=== PATIENT | male | born 1965 | race Caucasian/White ===

== ENCOUNTER → 2017-09-24 11:36 | Outpatient (CLI) | payer BC, SELFPAY ==
--- NOTE | 2017-09-24 11:36 | DI.REPORT_ITS ---
SYMPTOM/DIAGNOSIS: EVAL LT CALF PAIN M79.662 ? DVT LEFT LOWER EXTREMITY ULTRASOUND: The deep veins of the left lower extremity show normal compression augmentation and color flow. The visualized portions of the greater saphenous vein are patent. There is a 1.9 x 1.5 x 2.3 cm fluid collection in the popliteal fossa which may represent a Wills's cyst. IMPRESSION: No evidence of a left lower extremity deep venous thrombus. 2. 2.3 cm Wills's cyst.
== END ==
PROVIDERS: PCP Nurse Practitioner Family; Visit Provider Student in an Organized Health Care Education/Training Program
DX: M79.662 Pain in left lower leg (principal); M71.22 Synovial cyst of popliteal space [Baker], left knee
CPT/HCPCS: 93971

== ENCOUNTER 2017-10-17 10:30 | Outpatient (RCR) | payer BC, SELFPAY ==
--- NOTE | 2017-10-03 13:00 | IE_ITS ---
Date: October 03, 2017 Referring: Tyron Olivera MD M.D. Diagnosis: L LE contracture, s/p L WESLEY on 08/28/17, L plantar fasciitis P.T. Diagnosis: SUBJECTIVE: History of Present Illness: Sunil is a 52 year old male s/p WESLEY, anterior approach on 08/28/[address] Olivera. He has been experiencing approximately 3 weeks of increased irritation into the L foot, arch, and into the calf. They assessed him for blood clots, (-) in findings. He reports his pain to be an 8/ 10 that gets to a 10/10, it keeps him awake at night, it is painful to the touch , he cannot tolerate a sheet over his foot. He declines any pain into the L hip. Hip has been doing great with ROM, strength and mobility. He has been compliant with his HEP as issued post discharge from [facility] on 08/29/17. He is utilizing a standard cane for ambulation currently, moreso due to foot/calf irritation than his hip. His gait is mildly antalgic secondary to the pain in his heel. He declines any tingling or numbness, declines any bowel or bladder dysfunction. His next follow up is on 10/15/17, they are questioning need of a MRI at that point if no improvement. Pain Ratin/10 in the calf, 10/10 into the heel and foot. Prior Level of Function: Current Level of Function: Limited ADL's, limited standing tolerance, limited walking tolerance. Previous Treatment: WESLEY L. Social: He lives at home with his girlfriend. He remains out of work since surgery. He is employed for the [employer]. Comorbidities: Fairly unremarkable, other than a previous R WESLEY approximately 10 years ago. Falls in the last year: __X__ No ____Yes - How many? ____ - (if over 2, balance SM needs to be completed) Reported hospitalizations in the last year - ____ No __X__ Yes - Dates of admission/reason: for WESLEY one night then released home. Medications: PRN Ibuprofen and Tylenol. He has utilized muscle relaxers of which provide him no benefit. Quality of Life: __X__ Excellent ____ Good ____ Fair ____ Poor Standardized Measures: LEFS score: 32% OBJECTIVE: Posture: Mild forward head, rounded shoulder posturing, pendulous abdomen. Observation: (behavior, atrophy, skin color, etc.) In standing shifts his weight to his R LE, utilizing a single point cane on the R. Gait: Antalgic, favoring L LE with limited push off and heel strike secondary to extreme pain in his L foot, arch and heel that radiates into the calf. Palpation: Hypersensitivity to the touch, throughout the plantar fascia, into the gastric and soleus. ROM: Active lumbopelvic forward bend fingertips 8 from floor, extension (-) lateral shift to 20 degrees, sidebend to lateral joint line bilaterally. Rotation is equal and symmetrical without dysfunction. Active L hip flexion is to 100 degrees, ER 30 degrees, IR 10 degrees. Has full knee flexion/extension, dorsiflexion is to neutral, plantar flexion to 25 degrees with increased pain. R LE ROM is WFL and painfree. Strength: Hip flexors L 4/5, R 5/5, knee flexor/extensors 5/5, plantar flexors , dorsiflexors 5/5, he has independent SLR in supine sidelying. Neuro: Intact to light touch with hypersensitivity noted. He is unable to heel or toe walk on the L secondary to extreme pain in his L foot. Treatment: IE: [id number] Patient Education: Instruction in a home program promoting gastroc and soleus stretching, plantar fascia stretching, educated in use of supportive foot wear, avoid walking barefoot or without shoes. He received soft tissue mobilization to the posterior gastroc soleus into the plantar fascia in supine and prone positions. This did help with level of sensitivity. He then received X-Arch tape for improved support to the plantar fascia with weight bearing which also dramatically reduced level of irritation with his gait and was able to demonstrate improved gait mechanics with heel to toe fashion. Direct treatment time: 50 mins Total treatment time: 50 mins ASSESSMENT: Patient is a 52-year-old male, referred for PT services with the diagnosis of s/ p L WESLEY resulting in L LE contracture and plantar fasciitis. Patient presents with clinical signs and symptoms consistent with this diagnosis, as demonstrated by the following impairment level findings: Impaired joint mobility. motor functio, muscle performance and ROM associated with localized inflammation. Impairments are contributing to the following functional limitations: Gait, balance, strength, LEFS of 32%/ Patient is assessed as: __X__ Low 89262 ____ Moderate 00077 ____ High 34915 complexity, based on the following: History: (list): X See comorbidities and social history. Examination: (list): X See above for functional limitations and impairments. Presentation: X Stable . Evolving Unstable Decision-Making: X Low complexity Moderate complexity High complexity % Disability based on clinical judgement and LEFS of 32%. __X__ Patient requires skilled PT intervention to remediate the above functional limitations to return to: __X__ Premorbid level of function __X__ Return to full functional mobility __X__ Return to work demands _ STG: __6__ weeks. 1: Demonstrate non-antalgic gait without assistive device. 2: 50% reduction in pain rating via visual analog scale or greater in the L heel and arch. 3: Reduced perceived disability rating by 25% or greater via LEFS. 4: Ascend and descend a flight of stairs reciprocal fashion with use of railing. 5: Improve LE strength by 1/2 muscle grade or greater. LTG: __8__ weeks. 1: Return to premorbid level of function. 2: Return to full, pain-free, functional mobility. 3: Independent with self-maintenance program. PLAN: Patient to be seen 2 x per week, for 8 weeks, adjusting frequency of visits per patient symptoms and response to treatment. Treatment to include: Modalities as needed for pain and edema reduction with focus on plantar fascia Manual therapy - [id number]: soft tissue mobilization, soft tissue stretching , desensitization Therapeutic exercise - [id number]/close kinetic chain stabilization focusing on ADL return and return to work with manageable symptoms. If no level of improvement is seen, he will follow up again with orthopedic and proceed with further intervention. Will continue taping techniques, fabricate a pair of accommodative orthotics if taping is helpful. Patient will be discharged when the above goals have been met. Thank you for this referral. Please do not hesitate to contact me with any questions or concerns regarding this patient's plan of care. cc: Tyron Olivera MD
--- NOTE | 2017-10-05 09:30 | PTTR_ITS ---
DATE: 10/05/17 SUBJECTIVE: Harvinder reports that the X arch taping he received yesterday really bothered him and he took it off that night. He enters the clinic wearing sneakers today. OBJECTIVE: Manual therapy: (26177h3). STM t/o calf with focus on gastroc and soleus using PRT's. I also worked into his plantar aspect of foot. PRT's of plantar fascia, CFM over medial calcaneal tuberosity. Mobilizations of foot and ankle including dorsal and volar glides of subtalar and talocural jt as well as distractions and ROM. I then performed an ice massage to medial calcaneal tuberosity x 3min. I applied kinestiotape for plantar fascitis using Y strip and myofascial correction. Direct treatment time: 30 min Total treatment time: 30 min
--- NOTE | 2017-10-09 11:00 | PTTR_ITS ---
DATE: 10/09/17 SUBJECTIVE: Indicated he has really not noticed much of a change with his left foot / calf pain. Stated he is not really using ice much or massaging with golf ball due to this not making a difference with his pain. Indicated the taping of left foot has not really helped and is not interested in having tape applied today. Had a difficult time getting tape off last session. OBJECTIVE: Manual therapy ([id number]): Received soft tissue mobilization to left distal gastroc, myofascial splaying throughout the plantar fascia and CFM to calcaneal tuberosity for desensitization. Soft tissue stretching of gastroc and soleus muscles as well as throughout the plantar fascia was also performed. Therapeutic procedures (04646e7). * x HEP review: Reviewed his HEP with client. Was advised to continue utilizing cryotherapy, self massage and stretching. * x Ultrasound - (x 8 mins) - [id number]: Performed u/s at 3 mHz at 1.0 w/cm2 50% duty cycle x 8 minutes to left calcaneal tuberosity, as per discussion with supervising PT. To receive fabrication of orthotics next session. Direct treatment time: 25 minutes Total treatment time: 35 minutes
--- NOTE | 2017-10-12 09:30 | PTTR_ITS ---
DATE: October 12, 2017 SUBJECTIVE: Harvinder notes that he does feel that he is making some improvements. He states that his calf is not as sore. He reports that the foot remains the chief complaint. He reports that the hip is doing great. He feels that the ultrasound gave him some relief after last session. OBJECTIVE: Seen for accommodative orthotic fitting prior to todays session via [facility] Manual therapy: ([id number]).Soft tissue stretching to the left gastroc and soleus complex. STM to the plantar fascia. Therapeutic procedures (65892i1). * X HEP review: Reviewed therex per protocol s/p THR. * X See flow sheet: Incorporated intrinsic strength of the foot and ankle, with progression of open chain stabilization for the proximal hip and core musculature. * X Provided skilled instruction in proper exercise performance: promoting body mechanics with increased cueing needed for SL hip abduction. Wanted to compensate and utilize his hip flexors. * X Provided skilled manual cues to facilitate proper muscle recruitment and/ or movement pattern: avoiding compensatory movements. * Continued with verbal cueing for proper gait mechanics, patient continues to avoid push off. Ultrasound - (x 8 mins) - [id number]: 3 mgh 50%duty cycle 1.0 dailey per cm sq to the medial calcaneal tubercle Declined need of modality post session. Direct treatment time: 45 minutes Total treatment time: 45 minutes
--- NOTE | 2017-10-12 10:00 | NT_ITS ---
10/12/17 Today I fabricated a pair of custom orthotics using Aliplast and Plastizote. [place] scaphoid pad placed for longitudinal arch. These fit well in his shoes upon completion. Proper break in time was gone over with patient. He will contact me with any modifications that may need to be made. NO CHARGE. RF/dl
--- NOTE | 2017-10-16 10:30 | PTTR_ITS ---
DATE: 10/17/17 SUBJECTIVE: States he saw Dr. Olivera and feels his pain could be stemming from his back. See Dr. Olivera's note for details. Heel pain is improved, however continues to have pain and increased sensitivity to left lower leg. OBJECTIVE: Today's session consisted of lumbar stabilization along with initiating Kanwal exercise (prone on elbows and prone press ups). These were demonstrated in clinic and given for home. Also completed pelvic tilts, bridges and proper sitting position from a postural standpoint. Extensive verbal and tactile cueing for pelvic tilt were required. Harvinder felt some improvement at the end of the session and I instructed him to perform these extension exercises 5 times per day to tolerance. He is scheduled for an MRI next week as per Dr. Olivera. No modalities post treatment. Therapeutic procedures ([id number]). * X HEP review: * X Provided skilled instruction in proper exercise performance: [] * X Provided skilled manual cues to facilitate proper muscle recruitment and/ or movement pattern: [] Direct treatment time: 30 min. Total treatment time: 40 min.
--- NOTE | 2017-10-19 10:30 | PTTR_ITS ---
DATE: 10/19/17 [place] cancelled today's appointment due to him not feeling well.
== END 2017-10-19 23:59 | disposition home or self-care (01) ==
LOC: PT 10:30
PROVIDERS: PCP Nurse Practitioner Family; Referring Provider Student in an Organized Health Care Education/Training Program; Visit Provider Student in an Organized Health Care Education/Training Program
DX: Z47.1 Aftercare following joint replacement surgery (principal); Z96.642 Presence of left artificial hip joint; M72.2 Plantar fascial fibromatosis; M79.662 Pain in left lower leg
CPT/HCPCS: 97035; 97110; 97140; 97161

== ENCOUNTER 2017-10-24 00:51 | Outpatient (CLI) | payer BC, SELFPAY ==
--- NOTE | 2017-10-24 15:35 | DI.MRI_ITS ---
SYMPTOM/DIAGNOSIS: LT LUMBAR RADICULOPATHY, M54.16, LOW BACK PAIN RADIATING DOWN LEG LUMBAR SPINE MRI: Comparison is made with plain films from 2007. T 1, T 2 and STIR sagittal and T 1 and T 2 axial sequences were performed. The marrow signal is normal. The conus medullaris is unremarkable. The vertebral bodies are well maintained in height. The L 1-2 and L 2-3 levels are unremarkable. At L 3-4, there is mild broad based disc bulging and mild to moderate facet degenerative changes. Ligamentous hypertrophy is also present. There is no significant neural foraminal narrowing or central canal stenosis. At L 4-5, there is broad based disc bulging which is eccentric toward the right causing mild neural foraminal narrowing. Facet degenerative changes and ligamentous hypertrophy are present. No central canal stenosis is seen. At L 5-S 1, there is a small right lateral disc protrusion which could impinge on the left L 5 nerve root. There is no significant neural foraminal narrowing or central canal stenosis. IMPRESSION: Degenerative disc changes from L 3-4 through L 5-S 1. There is left neural foraminal narrowing at L 3-4 and right neural foraminal narrowing at L 4-5. A small right lateral disc protrusion is seen at L 5-S 1.
== END 2017-10-24 01:11 ==
PROVIDERS: PCP Nurse Practitioner Family; Visit Provider Student in an Organized Health Care Education/Training Program
DX: M54.5 Low back pain (principal); M51.16 Intervertebral disc disorders with radiculopathy, lumbar region; M54.16 Radiculopathy, lumbar region
CPT/HCPCS: 72148

== ENCOUNTER 2017-11-09 00:17 | Outpatient (CLI) | payer BC, SELFPAY ==
--- NOTE | 2017-11-09 10:42 | DI.CT_ITS ---
SYMPTOMS/DIAGNOSIS: PERONEAL NERVE INJURY, S/P LT WESLEY, LT LEG WEAKNESS, R29.898 , ? HEMATOMA CT SCAN OF THE LEFT PELVIS AND THIGH: CT scan of the left pelvis and thigh were performed extending from above the left iliac crest through to the upper femur to below the femoral component on the left hip prosthesis. There is artifact from the patient's orthopedic hardware. The muscles have a normal appearance. No evidence of fatty atrophy is seen. No findings to suggest an intramuscular hematoma are present. No soft tissue mass or focal fluid collection is seen in the region of the sciatic notch or along the course of the sciatic nerve to suggest a hematoma or abscess. The visualized nerve roots in the pelvis appear grossly unremarkable. No retroperitoneal mass is seen. The visualized bones appear intact. No evidence of an acute fracture is appreciated. The soft tissues are unremarkable. IMPRESSION: 1. Status post left total hip replacement. 2. Artifact from patient's orthopedic hardware. 3. No evidence of a soft tissue mass or fluid collection to suggest abscess or hematoma. No findings to suggest compression of the sciatic nerve are noted.
== END 2017-11-09 00:37 ==
PROVIDERS: PCP Nurse Practitioner Family; Visit Provider Student in an Organized Health Care Education/Training Program
DX: R29.898 Other symptoms and signs involving the musculoskeletal system (principal); S84.12XA Injury of peroneal nerve at lower leg level, left leg, initial encounter; Z96.642 Presence of left artificial hip joint
CPT/HCPCS: 73700

== ENCOUNTER 2017-11-14 13:46 | Outpatient (CLI) | payer BC, SELFPAY ==
--- NOTE | 2017-11-14 13:34 | DI.RAD_ITS ---
SYMPTOM/DIAGNOSIS: QUESTION OF WILLS'S CYST LEFT KNEE: Narrowing of the medial tibial femoral joint is demonstrated and there is some articular sclerosis. There is mild johnnie-articular hypertrophic spurring. There is nothing to suggest a joint effusion or Wills's cyst, however, if there is any further question in this regard further assessment with ultrasound is recommended.
== END 2017-11-14 14:06 ==
PROVIDERS: PCP Nurse Practitioner Family; Visit Provider Physician Assistant
DX: M25.562 Pain in left knee (principal); M76.892 Other specified enthesopathies of left lower limb, excluding foot
CPT/HCPCS: 73562

== ENCOUNTER 2017-11-16 00:20 | Outpatient (CLI) | payer MEDICAID, SELFPAY ==
--- NOTE | 2017-11-16 15:30 | DI.MRI_ITS ---
SYMPTOMS/DIAGNOSIS: CONTINUED LEFT NEUROPATHY, LEFT WILLS'S CYST LEFT KNEE MRI: MRI examination of the knee was performed according to the usual protocol. There is some motion artifact and the examination is technically limited. No Wills's cyst identified. No soft tissue mass seen by noncontrast criteria. No significant bony signal abnormality seen. Extensor mechanism appears intact. Articular cartilage of the tibiofemoral joints poorly visualized. Medial meniscal tear noted. No definite lateral meniscal tear is seen. No cruciate ligament tear is seen. No significant collateral ligament injury identified. CONCLUSION: Limited technical quality scan. Medial meniscal tear noted with no additional findings. No Wills's cyst seen.
== END 2017-11-16 00:40 ==
PROVIDERS: PCP Nurse Practitioner Family; Visit Provider Student in an Organized Health Care Education/Training Program
DX: M25.562 Pain in left knee (principal); S83.242A Other tear of medial meniscus, current injury, left knee, initial encounter
CPT/HCPCS: 73721

== ENCOUNTER 2018-06-05 22:51 | Emergency (ER) | payer MEDICAID, SELFPAY ==
[2018-06-05 22:55] VITALS: BP 143/82; PULSE 92; RESP 18; TEMP 36.6; O2SAT 94
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
[2018-06-05] MEDS: Azithromycin 250 MG TAB 500 MG PO (23:31)
[2018-06-05] MEDS: predniSONE 20 MG TAB 60 MG PO (23:31)
[2018-06-05 23:34] VITALS: RESP 7
[2018-06-05] MEDS: Albuterol/Ipratropium 3 ML UPD VIAL UPD (23:34)
[2018-06-05 23:46] VITALS: PULSE 91; O2SAT 98
[2018-06-05] MEDS: Albuterol HFA 8 GM 60 PUFF INH IH (23:58)
[2018-06-05] MEDS: Inhaler, Assist Device 1 EACH MC (23:59)
== END 2018-06-06 00:05 | disposition home or self-care (01) ==
PROVIDERS: Emergency Provider Emergency Medicine; PCP Nurse Practitioner Family
DX: J20.9 Acute bronchitis, unspecified (principal)
CPT/HCPCS: 94640; 99283; J7512; J7620

== ENCOUNTER 2018-09-05 01:10 | Outpatient (CLI) | payer MEDICAID, SELFPAY ==
--- NOTE | 2018-09-05 07:11 | DI.US_ITS ---
SYMPTOM/DIAGNOSIS: F/U 2013 U/S, FATTY LIVER , OBESITY K76.0 ABDOMINAL ULTRASOUND: The aorta is obscured by bowel gas, The vena cava is unremarkable. Increased echogenicity is noted in an enlarged liver. The gallbladder is intact. There are no stones or evidence of ductal dilatation. The pancreas is incompletely visualized but no gross abnormality is seen. The spleen has a maximal diameter of 10.9 cm. The right kidney is unremarkable measuring 12.6 cm. The left kidney is unremarkable measuring 12.7 cm. There is no evidence of abdominal free fluid. SUMMARY: Enlarged fatty liver is demonstrated. Also the spleen is somewhat enlarged. The examination is otherwise unremarkable.
[2018-09-05 08:47] LABS: Abs Immature Grans 0.05 k/cumm (0.0-0.09); Absolute Basophil Count 0.04 k/cumm (0.0-0.2); Absolute Eosinophil Count 0.27 k/cumm (0.0-0.7); Absolute Lymphocyte Count 2.09 k/cumm (1.2-3.4); Absolute Monocyte Count 0.63 k/cumm (0.11-0.7); Absolute Neutrophil Count 3.16 k/cumm (1.2-6.7); Basophils % 0.6; Eosinophils % 4.3; HCT 44.5 % (40.0-50.0); HGB 14.7 g/dL (13.5-17.5); Immature Grans % 0.8; Lymphocytes % 33.5; Mean Corpuscular Hemoglobin 31.1 pg (27.0-33.0); Mean Corpuscular Volume 94.3 fL (80-95); Mean Platelet Volume 10.8 fL (8.0-11.0); Monocytes % 10.1; Neutrophils % 50.7; Platelet Count 141 x1000/uL (130-400); RBC 4.72 m/cumm (4.50-6.00); RBC Distribution Width 13.1 % (11.8-14.1); White Blood Cell Count 6.24 k/cumm (4.4-10.8)
[2018-09-05 09:48] LABS: ALT 146 U/L (12-78); AST 79 U/L (15-37); Albumin 3.7 g/dL (3.4-5.0); Alkaline Phosphatase 60 U/L (46-116); Anion Gap 10.2 mmol/L (3-11); BUN 16 mg/dL (7-18); Bilirubin, Total 0.4 mg/dL (0.2-1.0); CO2 26.8 mmol/L (21.0-32.0); CREATININE 0.83 mg/dL (0.70-1.30); Calcium 8.8 mg/dL (8.5-10.1); Calculated LDL 152 mg/dL; Chloride 102 mmol/L (98-107); Cholesterol 217 mg/dL (50-200); Glucose 96 mg/dL (70-100); HDL Cholesterol 42 mg/dL (40-60); Potassium 4.3 mmol/L (3.5-5.1); Sodium 139 mmol/L (136-145); TSH (W/Ref FT4) 5.11 uIU/mL (0.358-3.74); Total Protein 7.5 g/dL (6.4-8.2); Triglyceride 116 mg/dL (30-150); Vitamin B12 436 pg/mL (193-986)
[2018-09-06 12:45] LABS: Total Protein 7.1 g/dl (6.3-8.2)
== END 2018-09-05 01:30 ==
PROVIDERS: Psychiatry & Neurology Neurology; PCP Nurse Practitioner Adult Health; Visit Provider Nurse Practitioner Adult Health
DX: E66.9 Obesity, unspecified (principal); K76.0 Fatty (change of) liver, not elsewhere classified; D64.9 Anemia, unspecified; E03.9 Hypothyroidism, unspecified; I10 Essential (primary) hypertension; R74.0 Nonspecific elevation of levels of transaminase and lactic acid dehydrogenase [LDH]; Z51.81 Encounter for therapeutic drug level monitoring; E78.5 Hyperlipidemia, unspecified; G62.9 Polyneuropathy, unspecified; R16.1 Splenomegaly, not elsewhere classified
CPT/HCPCS: 36415; 80053; 80061; 83721; 76700; 82607; 83036; 84165; 84439; 84443; 85025

== ENCOUNTER 2018-12-31 08:26 | Emergency (ER) | payer MEDICAID, SELFPAY ==
[2018-12-31 08:35] VITALS: BP 143/94; PULSE 81; RESP 18; TEMP 35.9; O2SAT 98
--- NOTE | 2018-12-31 08:58 | DI.CT_ITS ---
EXAM: CT RENAL COLIC WO CLINICAL HISTORY: left flank pain, fall 10 days ago, refused contrast TECHNIQUE: Imaging Protocol: Axial computed tomography images with coronal and sagittal reformatted images were created and reviewed. CONTRAST MATERIAL: Intravenous: Omnipaque 350 Contrast volume:0 mL contrast route:IV - Oral: No COMPARISON: CHEST FOR PULMONARY EMBOLUS from 12/05/2016 CT lower extremity LT wo from 11/09/2017 FINDINGS: ABDOMEN: Lung Bases: Normal where visualized. Liver: Normal density. No measurable mass. Gallbladder and biliary tract: No radiodense calculus or dilation. Pancreas: Normal density, no abnormal calcifications or inflammatory process. Spleen: Normal. Kidneys: Normal size, contour and axis. No radiodense stones or obstructive uropathy. No masses seen. Adrenal glands: No masses seen. Abdominal Aorta: Abdominal portion non-dilated. Atherosclerosis. PELVIS: Bladder: Symmetric distention, no gross wall thickening. Bowel: No obstruction or bowel wall thickening. There is a moderate size hiatal hernia. The appendi x is normal in size without evidence of adjacent mesenteric fat stranding or adjacent fluid collectio n. Peritoneal cavity: No ascites, collection or mesenteric inflammatory response. There is a small fat c ontaining umbilical hernia. Bones: Within normal limits. There are bilateral total hip replacements. There is artifact in the pel vis limiting evaluation of the pelvic organs. IMPRESSION: No evidence of an acute abdomen. The findings were discussed with the emergency department on the date of the examination. DATA REPOSITORY: All CT scans at this facility are submitted to the National Radiology Data Registry (NRDR) Dose Index Registry (DIR) with the [employer] (ACR). RADIATION OPTIMIZATION: All CT scans at this facility use at least one of these dose optimization te chniques: automated exposure control; mA and/or kV adjustment per patient size (includes targeted exa ms where dose is matched to clinical indication); or iterative reconstruction.
--- NOTE | 2018-12-31 08:58 | DI.RAD_ITS ---
EXAM: XR ELBOW LT COMPLETE INDICATION: fall 10d ago, ttp. COMPARISON: No exams were available for comparison TECHNIQUE: 2D digital imaging was performed. FINDINGS: No acute fracture or dislocation is present. There is a large enthesophyte at the olecranon. The so ft tissues are unremarkable. IMPRESSION: No acute fracture or dislocation.
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
== END 2018-12-31 10:45 | disposition home or self-care (01) ==
PROVIDERS: Emergency Provider Student in an Organized Health Care Education/Training Program; PCP Nurse Practitioner Adult Health
DX: M54.5 Low back pain (principal); M25.522 Pain in left elbow
CPT/HCPCS: 99284; 73080; 74176

== ENCOUNTER 2019-04-07 06:16 | Day surgery (SDC) | payer MEDICAID, SELFPAY ==
[2019-04-07 06:36] VITALS: BP 130/73; PULSE 89; RESP 18; TEMP 36.5; O2SAT 93
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
--- NOTE | 2019-04-07 06:46 | W.PM.ENDDOP ---
Date of service: 04/07/19 Time of Service: 07:38 Endoscopy Report DATE OF PROCEDURE: 04/07/19 PRE-OP DIAGNOSIS: Hx of colon Polyps and Hx of Mcmahan's POST-OP DIAGNOSIS: same (GAstritis, Gastric polyps, Hiatal Hernia, Esophagitis, Colon polyps, mild diverticulosis) PROCEDURE: 1. EGD with biopsies 2. Colonoscopy with polypectomy SURGEON: Mary Beltre ANESTHESIA: other (General/ ASA 3/ Lissette Guevara, CHYRON OPERATOR) ESTIMATED BLOOD LOSS: 4 PATHOLOGY: other (Gastric bx, gastric polyp bx, GE junction bx, Descending colon polyp x2, Sigmoid polyp x2) COMPLICATIONS: None DISPOSITION: same day INDICATIONS: 53 y/o male with history of HTN, barretts esophagus, obesity and chronic pain presents for EGD and colonoscopy screening pre-op. His last screening was in 2013, which was remarkable for tubular adenoma. He denies a family history of colon cancer. He denies any changes in bowel habits including bloody or black tarry stools, abdominal pain, diarrhea or constipation. Risks, benefits and complications have been reviewed. Complications include but are not limited to bleeding, pain, perforation, missed small lesion/polyp, sore throat, aspiration and adverse reaction to the medications. Questions were entertained and answered to their satisfaction and they wished to proceed. No guarantees were given or implied. PREP: Miralax/Dulcolax PROCEDURE START TIME: 07:38 PROCEDURE END TIME: 08:35 COLONOSCOPY RETRACTION TIME: 40 minutes FINDINGS: Upper- mild inflammation of the stomach, multiple fundic polyps, esophagitis and Mcmahan's Lower- 4 polyps and mild diverticulosis PROCEDURE DESCRIPTION: After informed consent was obtained the patient was take to the procedure room and placed in a supine position. Monitors were applied and a time out was done. The patients name, date of , procedure type, allergies to medications and metal in their body was reviewed. A bite block was placed and the patient was sedated. Once sedated and comfortable the gastroscope was advanced through the oropharynx which was grossly normal into the esophagus. The proximal and mid-esophagus were Normal. In the distal esophagus there was inflammation noted. Grossely it looked like Mcmahan's. No ulcer were noted. The scope was advanced into the stomach and through the pylorus into the 3rd portion of the duodenum. The duodenum was noted to be normal. The scope was retracted back into the stomach. There was mild inflammation noted and biopsies were done to rule out H. pylori. There were no ulcers. Multiple fundic polyps were identified and biopsied. The scope was retro-flexed. The cardia and fundus were noted to be normal. There was a hiatal hernia noted. The scope was retracted back into the esophagus and biopsies were done of the GE junction for surveillance of the patients Mcmahan's. The Z line was irregular circumferentialy. The GE junction was at 35 cm. While the patient was still sedated they were placed in a left decubitous position. A rectal exam was done. External exam was normal. Internal exam revealed a normal sphincter tone and no palpable masses. The prostate felt smooth. The scope was then introduced and retro-flexed. No internal hemorrhoids were identified. The scope was then advanced to the cecum without difficulty. The TI and appendiceal orifice were identified. The prep was adequate. There was some bile and stool stuck to the wall of the right colon. This was irrigated with 1 L of Saline. The scope was then slowly retracted over 40 minutes back into the rectum. 4 polyps were removed with cold forceps. 2 in the descending colon and 2 in the sigmoid colon. Mild diverticulosis was noted in the descending colon. The scope was removed and the patient was woken up and taken back to Same day surgery in stable condition. The patient tolerated the procedure well and there were no immediate complications. Follow up: 3-5 years depending on final pathology.
--- NOTE | 2019-04-07 06:47 | W.PM.DSUDISC ---
Discharge Plan Disposition Patient Disposition: HOME Condition: Good Discharge Details Reason For Visit: Hx of polyps and Hx of Mcmahan's Attending Provider: Mary Beltre Primary Care Provider: Tiffany Almanzar Home Meds and New Rx's Prescriptions: Continued gabapentin 600 mg tablet 1,200 mg PO TID Qty: 180 RF: 5 omeprazole 20 mg capsule,delayed release(DR/EC) 20 mg PO DAILY Qty: 90 RF: 3 levothyroxine 50 mcg tablet 50 mcg PO DAILY Qty: 90 RF: 3 hydroxyzine HCl 10 mg tablet 10 - 20 mg PO DAILY PRN (Reason: itching) Qty: 30 RF: 1 hydrochlorothiazide 12.5 mg tablet 12.5 mg PO DAILY Qty: 90 RF: 3 ibuprofen 600 mg tablet 600 mg PO TID PRN (Reason: pain) Qty: 90 RF: 6 lisinopril 10 mg tablet 10 mg PO DAILY Qty: 90 RF: 3 aspirin 81 MG tablet,chewable 81 mg PO DAILY RF: 0 Discontinued polyethylene glycol 3350 17 gram/dose powder 238 g PO ONCE Qty: 238 RF: 0 bisacodyl [Dulcolax (bisacodyl)] 5 mg tablet,delayed release (DR/EC) 5 mg PO ONCE Qty: 4 RF: 0 Discharge Instructions Instructions: Hiatal Hernia (DC), Mcmahan Esophagus (DC), Colorectal Polyps (DC), Diverticulosis (DC) Additional Instructions: Findings: Mild inflammation of the stomach and benign appearing polyps Mcmahan's esophagus Hiatal hernia 4 small polyps mild diverticulosis Follow up: 3-5 years Please call if you develop: fevers >101.5 Nausea or Vomiting Abdominal pain that is not transient DAY SURGERY UNIT POST ENDOSCOPY INSTRUCTIONS 1. Because there will be medication in your system for the next 24 hours, you may feel a little sleepy. Your coordination will be affected. Therefore: a. Do not drive or operate dangerous equipment for 24 hours. b. Do not drink alcohol beverages for 24 hours (not even beer). c. Plan to go home and rest for the day. 2. Generally there are no restrictions on your activity after a day or so has gone by, but you may feel a bit fatigued for a few days. 3 After you arrive home you may have a light meal and return to a normal diet as you can tolerate it without feeling sick to your stomach. 4. After surgery, you may feel pain or discomfort. This should be only transient, but if it persists please contact your doctor. 5. If there are any questions regarding the findings of your procedure, please feel free to contact your doctor. 6. If you are unable to contact your doctor with a problem, contact the hospital at [phone]. 7. Continue all your regular medications unless directed otherwise. I understand the above instructions and have no questions. Signature of Patient or Responsible Adult Escort Date/Time Name of Responsible Adult Escort Signature of Nurse Date/Time Activity:: Activity as Tolerated Diet:: High Fiber diet Discharge Orders Discharge Orders: Discharge Order (Routine); Ordered 04/07/19 Ordered By: Mary Beltre DS: Diagnosis Discharge Diagnosis (1) Hx of colonic polyps: Status: Acute (2) Mcmahan's esophagus: Status: Chronic
[2019-04-07] MEDS: Lactated Ringers 1,000 ML 80 ML IV (06:50)
--- NOTE | 2019-04-07 07:40 | STOM_PTH ---
PATIENT: Harvinder Olivares LOC: [facility] U#:[id number] AGE/SX: 53/M ROOM: RE04/07/[address]: Mary Beltre MD : 1965 BED: DIS: 04/07/2019 SPEC #: [id number] RECD: 04/07/19 12:34 STATUS: DAMARIS REQ #: [id number] AMILCAR: 04/07/19 07:[address]: Mary Beltre DEPT: Surgical Specimen RECD BY: Zuleika Hansen ENTERED: 04/07/19 12:39 SP TYPE: STOMACH OTHR DR: Tiffany Almanzar APRN Tissues: 1 - STOMACH BIOPSY 2 - STOMACH BIOPSY 3 - ESOPHAGUS BIOPSY 4 - BIOPSY BOWEL 5 - BIOPSY BOWEL Procedures: GROSS AND MICRO LEVEL 4 Comments: [id number]
[2019-04-07 09:10] VITALS: BP 108/62; PULSE 73; RESP 16; TEMP 36; O2SAT 94
== END 2019-04-07 09:40 | disposition home or self-care (01) ==
PROVIDERS: PCP Nurse Practitioner Adult Health; Visit Provider Surgery
PROC: (CPT 45380; principal; 2019-04-07 07:30)
DX: Z12.11 Encounter for screening for malignant neoplasm of colon (principal); K63.5 Polyp of colon; Z86.010 Personal history of colon polyps; K57.30 Diverticulosis of large intestine without perforation or abscess without bleeding; K22.70 Barrett's esophagus without dysplasia; K21.0 Gastro-esophageal reflux disease with esophagitis; K31.7 Polyp of stomach and duodenum; K44.9 Diaphragmatic hernia without obstruction or gangrene; I10 Essential (primary) hypertension
CPT/HCPCS: 45380; 43239; 88305; NC; J2001; J2704

== ENCOUNTER 2019-11-14 02:17 | Outpatient (CLI) | payer MEDICAID, SELFPAY ==
[2019-11-14 09:19] LABS: Hemoglobin A1C 5.9 % (<5.7)
[2019-11-14 11:20] LABS: ALT 111 U/L (16-63); AST 55 U/L (15-37); Albumin 3.8 g/dL (3.4-5.0); Alkaline Phosphatase 60 U/L (46-116); Anion Gap 7.9 mmol/L (3-11); BUN 12 mg/dL (7-18); Bilirubin, Total 0.4 mg/dL (0.2-1.0); CO2 28.1 mmol/L (21.0-32.0); CREATININE 0.92 mg/dL (0.70-1.30); Calcium 8.9 mg/dL (8.5-10.1); Calculated LDL 150 mg/dL (<100); Chloride 102 mmol/L (98-107); Cholesterol 212 mg/dL (<200); Glucose 107 mg/dL (74-106); HDL Cholesterol 42 mg/dL (40-60); Sodium 138 mmol/L (136-145); TSH (W/Ref FT4) 4.55 uIU/mL (0.36-3.74); Total Protein 7.4 g/dL (6.4-8.2); Triglyceride 103 mg/dL (<150); Vitamin B12 373 pg/mL (193-986)
[2019-11-14 12:01] LABS: FREE T4 0.95 ng/dL (0.76-1.46)
== END 2019-11-14 02:37 ==
PROVIDERS: PCP Nurse Practitioner Adult Health; Visit Provider Nurse Practitioner Adult Health
DX: I10 Essential (primary) hypertension (principal); R73.01 Impaired fasting glucose; E03.9 Hypothyroidism, unspecified; K76.0 Fatty (change of) liver, not elsewhere classified
CPT/HCPCS: 36415; 80053; 80061; 82607; 83036; 84439; 84443

== ENCOUNTER 2020-03-04 10:01 | Outpatient (CLI) | payer MEDICAID, SELFPAY ==
--- NOTE | 2020-03-04 09:00 | DI.RAD_ITS ---
EXAM: XR HIP LT COMPLETE AP PELVIS CLINICAL HISTORY: LEFT HIP PAIN TECHNIQUE: FINDINGS: Two views were obtained. There are total hip joint replacements in position bilaterally. The compon ents appear well seated. No other significant bony abnormality seen. IMPRESSION: RADIATION DOSE DELIVERED: Total DLP
== END 2020-03-04 10:21 ==
PROVIDERS: PCP Nurse Practitioner Adult Health; Referring Provider Nurse Practitioner Adult Health; Visit Provider Student in an Organized Health Care Education/Training Program
DX: M25.552 Pain in left hip (principal); Z96.643 Presence of artificial hip joint, bilateral
CPT/HCPCS: 73502

== ENCOUNTER 2020-04-23 09:34 | Outpatient (CLI) | payer MEDICAID, SELFPAY ==
[2020-04-24 14:34] LABS: COVID-19 RT-PCR UVMMC Result Positive (Negative)
== END 2020-04-23 09:35 | disposition home or self-care (01) ==
LOC: LBO 09:35
PROVIDERS: PCP Nurse Practitioner Adult Health; Visit Provider Nurse Practitioner Adult Health
DX: Z20.822 Contact with and (suspected) exposure to COVID-19 (principal)
CPT/HCPCS: U0003

== ENCOUNTER 2020-04-27 02:41 | Outpatient (CLI) | payer MEDICAID, SELFPAY ==
[2020-04-27] MEDS: Normal Saline Flush 10 ML SYR IVP (13:59)
[2020-04-27] MEDS: Normal Saline 500 ML 30 ML IV (13:59)
[2020-04-27 14:03] VITALS: BP 131/77; PULSE 113; RESP 20; TEMP 36.6; O2SAT 93
[2020-04-27 14:07] VITALS: BP 115/78; PULSE 107; RESP 22; TEMP 36.7; O2SAT 91
[2020-04-27 14:27] VITALS: BP 117/77; PULSE 106; RESP 22; TEMP 36.9; O2SAT 90
[2020-04-27 14:54] VITALS: BP 124/70; PULSE 106; RESP 22; TEMP 36.3; O2SAT 91
[2020-04-27 15:22] VITALS: BP 108/68; PULSE 102; RESP 22; TEMP 36.9; O2SAT 90
== END 2020-04-27 02:42 | disposition home or self-care (01) ==
PROVIDERS: PCP Nurse Practitioner Adult Health; Visit Provider Family Medicine
DX: U07.1 COVID-19 (principal)
CPT/HCPCS: 96365

== ENCOUNTER 2020-06-02 10:48 | Outpatient (CLI) | payer MEDICAID, SELFPAY ==
--- NOTE | 2020-06-02 11:00 | DI.RAD_ITS ---
EXAM: XR CHEST 2V PA LATERAL CLINICAL HISTORY: r/o acute process post-COVID work-up, hypoxia, wheeze, cough. TECHNIQUE: 2D digital imaging was performed. COMPARISON: CR CHEST 2 VIEWS PA,LAT from 09/04/2016 FINDINGS: Heart size is normal. The mediastinum is not widened. Left lung is clear but there appears to be subtle infiltrate in the peripheral right upper lobe or santizo perior segment right lower lobe. Also possible patchy infiltrate lower down right lower lobe. No pl eural effusions. No pneumothorax. IMPRESSION: Right lung infiltrates. Close follow-up recommended. Consider CT scan. DATA REPOSITORY: RADIATION DOSE DELIVERED:
[2020-06-02 11:13] LABS: Abs Immature Grans 0.05 10^3/uL (0.0-0.06); Absolute Basophil Count 0.07 10^3/uL (0.0-0.2); Absolute Eosinophil Count 0.35 10^3/uL (0.0-0.7); Absolute Lymphocyte Count 2.58 10^3/uL (1.2-3.4); Absolute Monocyte Count 0.69 10^3/uL (0.1-0.8); Absolute Neutrophil Count 3.69 10^3/uL (1.2-6.7); Basophils % 0.9; Eosinophils % 4.7; HCT 44.3 % (40.0-50.0); HGB 14.2 g/dL (13.5-17.5); Immature Grans % 0.7; Lymphocytes % 34.7; MCH 30.5 pg (27.0-33.0); MCHC 32.1 % (32.0-36.0); MCV 95.1 fL (80-95); MPV 10.3 fL (8.0-11.0); Monocytes % 9.3; Neutrophils % 49.7; Nucleated RBC 0 %; Platelet Count 142 10^3/uL (130-400); RBC 4.66 10^6/uL (4.36-5.78); RDW 12.8 % (11.8-14.1); RDW-SD 44.9 fL; WBC 7.43 10^3/uL (4.4-10.8)
[2020-06-02 11:23] LABS: ALT 55 U/L (16-63); AST 25 U/L (15-37); Albumin 3.4 g/dL (3.4-5.0); Alkaline Phosphatase 65 U/L (46-116); Anion Gap 5.3 mmol/L (3-11); BUN 11 mg/dL (7-18); Bilirubin, Total 0.4 mg/dL (0.2-1.0); CO2 31.7 mmol/L (21.0-32.0); CREATININE 0.8 mg/dL (0.70-1.30); Calcium 8.7 mg/dL (8.5-10.1); Chloride 103 mmol/L (98-107); Glucose 104 mg/dL (74-106); Sodium 140 mmol/L (136-145); Total Protein 7.6 g/dL (6.4-8.2)
[2020-06-02 11:40] LABS: D-Dimer 1098 ng/mlFEU (<500)
--- NOTE | 2020-06-02 13:35 | DI.CT_ITS ---
EXAM: CT CHEST PE CTA CLINICAL HISTORY: r/o PE--1m post COVID with persis SOB, new O2 dep. TECHNIQUE: Imaging Protocol: CT angiography of the chest was performed using pulmonary embolus paulette col. Multi planar reconstructions were performed. CONTRAST MATERIAL: Intravenous: Omnipaque 350 Contrast volume: 100 cc COMPARISON: CT CT RENAL COLIC WO from 12/31/2018 FINDINGS: CHEST: Slightly less than optimal bolus injection. Also respiratory motion artifact. PULMONARY ARTERIES: No intraluminal filling defects within the central pulmonary arteries and 2nd ord er vessels to suggest the presence of acute pulmonary emboli. Subsegmental vessels are not well opac ified. LUNGS: No evidence of pulmonary infarction or pleural effusion. However, there are relatively symmet rical patchy bilateral infiltrates as well as some interstitial disease. There are no pleural effusi ons. MEDIASTINUM: There is no hilar mediastinal adenopathy. There is no adenopathy in the anterior medias tinal fat nor pretracheal region. Slightly enlarged subcarinal lymph nodes are noted. No axillary a denopathy. No supraclavicular adenopathy. Small hiatal hernia. CARDIAC: Heart size is upper normal. There is no pericardial effusion.Caliber of the thoracic aorta is within normal limits. There is no significant shift of the interventricular septum. PARTIALLY VISUALIZED UPPERMOST ABDOMEN: Hepatic steatosis. Also paddle megaly OSSEOUS: Multiple healed right-sided rib fractures are noted. No acute fractures. No significant os seous lesions.. IMPRESSION: 1. Suboptimal injection +motion artifact. However, there is no evidence of obvious acute pulmonary emboli. No evidence of pulmonary infarction.No pleural effusions.. However, there is relatively sym metrical patchy bilateral infiltrates. No hilar adenopathy. Slightly enlarged subcarinal lymph node s. 2. Small hiatal hernia is again noted. RADIATION DOSE DELIVERED: 862.5mGy.cm Total DLP DATA REPOSITORY: All CT scans at this facility are submitted to the National Radiology Data Registry (NRDR) Dose Index Registry (DIR) with the [employer] (A[employer]). RADIATION OPTIMIZATION: All CT scans at this facility use at least one of these dose optimization te chniques: automated exposure control; mA and/or kV adjustment per patient size (includes targeted exa ms where dose is matched to clinical indication); or iterative reconstruction.
[2020-06-02] MEDS: Normal Saline - Diluent 50 ML VIAL IV (13:40)
== END 2020-06-02 10:49 | disposition home or self-care (01) ==
PROVIDERS: PCP Nurse Practitioner Adult Health; Visit Provider Nurse Practitioner Adult Health
DX: R06.02 Shortness of breath (principal); R06.2 Wheezing; R05 Cough; R91.8 Other nonspecific abnormal finding of lung field; Z86.16 Personal history of COVID-19; Z99.81 Dependence on supplemental oxygen
CPT/HCPCS: 36415; 71275; 80053; 71046; 85025; 85379

== ENCOUNTER 2020-06-25 04:50 | Outpatient (CLI) | payer MEDICAID, SELFPAY ==
--- NOTE | 2020-06-25 | DI.RAD_ITS ---
Exam(s) XR CHEST 2V PA LATERAL EXAM: XR CHEST 2V PA LATERAL CLINICAL HISTORY: REASSESS INFILTRATES, HYPOXIA,R09.02,H/O PAST COVID,U07.1 TECHNIQUE: 2D digital imaging was performed. COMPARISON: CR CHEST 2 VIEWS PA,LAT from 09/04/[address] CHEST PE CTA from 06/02/2020 CR XR CHEST 2V PA LATERAL from 06/02/2020 FINDINGS: MEDIASTINUM: Normal. HEART: Normal. PULMONARY VASCULATURE: Normal. LUNGS: The lungs are largely free of disease. There is mild residual infiltrate in the right lower l obe. No new infiltrates are seen. PLEURAL SPACE: No pleural effusion or pneumothorax. BONE:Within normal limits for the patient's age. OTHER FINDINGS:Normal. IMPRESSION: Significant clearing of the lungs with minimal residual infiltrate in the right lower lobe. DATA REPOSITORY: RADIATION DOSE DELIVERED:
== END 2020-06-25 05:10 ==
PROVIDERS: PCP Nurse Practitioner Adult Health; Visit Provider Nurse Practitioner Adult Health
DX: J98.4 Other disorders of lung (principal); R09.02 Hypoxemia; Z86.16 Personal history of COVID-19
CPT/HCPCS: 71046

== ENCOUNTER 2020-07-21 01:50 | Outpatient (CLI) | payer MEDICAID, SELFPAY ==
--- NOTE | 2020-07-21 10:17 | DI.RAD_ITS ---
Exam(s) XR CHEST 2V PA LATERAL EXAM: XR CHEST 2V PA LATERAL CLINICAL HISTORY: 1-month interval F/U COVID R infiltrATE,U07.1,R91.8 TECHNIQUE: 2D digital imaging was performed. COMPARISON: CR XR CHEST 2V PA LATERAL from 06/25/2020 FINDINGS: MEDIASTINUM: Normal. HEART: Normal. PULMONARY VASCULATURE: Normal. LUNGS: Clear. PLEURAL SPACE: No pleural effusion or pneumothorax. BONE:Within normal limits for the patient's age. OTHER FINDINGS:Normal. IMPRESSION: No acute pulmonary findings. DATA REPOSITORY: RADIATION DOSE DELIVERED:
== END 2020-07-21 02:10 ==
PROVIDERS: PCP Nurse Practitioner Adult Health; Visit Provider Nurse Practitioner Adult Health
DX: R91.8 Other nonspecific abnormal finding of lung field (principal); Z86.16 Personal history of COVID-19
CPT/HCPCS: 71046

== ENCOUNTER 2021-02-01 16:56 | Outpatient (REF) | payer MEDICAID, SELFPAY ==
[2021-02-03 13:07] LABS: COVID-19 RT-PCR UVMMC Result Negative (Negative)
== END 2021-02-01 16:57 | disposition home or self-care (01) ==
LOC: LBN 16:56
PROVIDERS: PCP Nurse Practitioner Adult Health; Visit Provider Student in an Organized Health Care Education/Training Program
DX: Z20.822 Contact with and (suspected) exposure to COVID-19 (principal); R06.02 Shortness of breath; R05.8 Other specified cough
CPT/HCPCS: U0003

== ENCOUNTER 2021-07-22 01:55 | Outpatient (CLI) | payer MEDICAID, SELFPAY ==
[2021-07-22] MEDS: Albuterol HFA 18 GM 200 PUFF INH IH (13:41)
[2021-07-22] MEDS: Inhaler, Assist Device 1 EACH MC (13:42)
--- NOTE | 2021-07-25 13:54 | W.PFT ---
Date of service: 07/22/21 Time of Service: 13:07 Pulmonary Function Test Result Requesting Provider Tiffany Almanzar Indications: Dyspnea, PASC Interpretation Spirometry: There is no airflow limitation. There is no significant bronchodilator response. There is restrictive appearing spirometry. Impression Likely pseudo-restriction from obesity, but cannot rule our restrictive lung disease with spirometry alone. Can consider full PFT's, including lung volumes if there is concern for true restriction, such as ILD. Clinical Correlation therefore is recommended.
== END 2021-07-22 01:56 | disposition home or self-care (01) ==
PROVIDERS: PCP Nurse Practitioner Adult Health; Visit Provider Nurse Practitioner Adult Health
DX: R06.02 Shortness of breath (principal); U09.9 Post COVID-19 condition, unspecified; J98.4 Other disorders of lung; E66.9 Obesity, unspecified
CPT/HCPCS: 94060

== ENCOUNTER 2021-09-22 02:51 | Outpatient (CLI) | payer MEDICAID, SELFPAY ==
[2021-09-22 08:10] LABS: HCT 46.1 % (40.0-50.0); MCH 31.7 pg (27.0-33.0); MCHC 32.5 % (32.0-36.0); MCV 98 fL (80-95); MPV 10.5 fL (8.0-11.0); Platelet Count 141 10^3/uL (130-400); RBC 4.73 10^6/uL (4.36-5.78); RDW 12.9 % (11.8-14.1); RDW-SD 46.4 fL; WBC 7.28 10^3/uL (4.4-10.8)
[2021-09-22 09:14] LABS: Hemoglobin A1C 6.7 % (<5.7)
[2021-09-22 09:16] LABS: ALT 139 U/L (16-63); AST 86 U/L (15-37); Albumin 3.5 g/dL (3.4-5.0); Alkaline Phosphatase 58 U/L (46-116); BUN 11 mg/dL (7-18); Bilirubin, Total 0.5 mg/dL (0.2-1.0); CREATININE 0.8 mg/dL (0.70-1.30); Calcium 8.7 mg/dL (8.5-10.1); Calculated LDL 144 mg/dL (<100); Chloride 102 mmol/L (98-107); Cholesterol 215 mg/dL (<200); Folate 14.9 ng/mL (8.6-20.0); Glucose 138 mg/dL (74-106); HDL Cholesterol 47 mg/dL (40-60); Sodium 140 mmol/L (136-145); TSH (W/Ref FT4) 9.23 uIU/mL (0.36-3.74); Total Protein 7.8 g/dL (6.4-8.2); Triglyceride 120 mg/dL (<150); Vitamin B12 249 pg/mL (193-986)
[2021-09-23 09:57] LABS: Hepatitis C Ab w Rflx HCV PCR Negative (Negative)
[2021-09-23 10:36] LABS: HIV-1/2 Ag & Ab Screen Negative (Negative)
== END 2021-09-22 02:52 | disposition home or self-care (01) ==
LOC: LBO 02:51
PROVIDERS: PCP Nurse Practitioner Adult Health; Visit Provider Nurse Practitioner Adult Health
DX: E03.9 Hypothyroidism, unspecified (principal); E78.5 Hyperlipidemia, unspecified; I10 Essential (primary) hypertension; K22.70 Barrett's esophagus without dysplasia; R73.01 Impaired fasting glucose; Z86.010 Personal history of colon polyps
CPT/HCPCS: 36415; 80053; 80061; 85027; 86803; 87389; 82607; 82746; 83036; 84439; 84443

== ENCOUNTER 2022-01-27 16:13 | Outpatient (CLI) | payer MEDICAID, SELFPAY ==
[2022-01-27 16:50] LABS: Bilirubin Negative (Negative); Blood Negative (Negative); Clarity Clear (Clear); Glucose >=1000 mg/dL (Negative); Ketones 15 mg/dL (Negative); Leukocyte Esterase Negative (Negative); Nitrite Negative (Negative); Urobilinogen 0.2 EU/dL (Up TO 0.2)
[2022-01-27 17:00] LABS: BUN 18 mg/dL (7-18); CREATININE 1.3 mg/dL (0.70-1.30); Calcium 9.5 mg/dL (8.5-10.1); Chloride 90 mmol/L (98-107); Estimated GFR 64.47 (mL/min/1.73m2); Potassium 4.4 mmol/L (3.5-5.1); Sodium 128 mmol/L (136-145)
[2022-01-27 17:29] LABS: Glucose 736 mg/dL (74-106)
[2022-01-29 17:33] LABS: Osmolality Serum 310 mOsm/kg (275-295)
== END 2022-01-27 16:14 | disposition home or self-care (01) ==
LOC: LBO 16:15
PROVIDERS: PCP Nurse Practitioner Adult Health; Visit Provider Surgery
DX: E11.9 Type 2 diabetes mellitus without complications (principal)
CPT/HCPCS: 36415; 80048; 81003; 83036; 83930

== ENCOUNTER 2022-01-27 18:19 | Emergency (ER) | payer MEDICAID, SELFPAY ==
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
[2022-01-27 18:28] VITALS: BP 160/100; PULSE 96; RESP 18; TEMP 36.9; O2SAT 95
[2022-01-27] MEDS: Normal Saline 2,000 ML 1000 ML IV (19:40)
--- NOTE | 2022-01-28 10:33 | NUR.NOTE ---
Nursing Note: Patient's fiance called asking if prescription was called in to [facility]. I called they do have the prescription but will not have the medication until after 11asunday. Lila Currie will call her back and give her instructions.
--- NOTE | 2022-01-28 10:36 | W.ED.FU ---
Date of service: 01/28/22 Time of Service: 10:36 Follow Up Plan: Patients Rin on phone reports pharmacy unable to fill medication until Sunday. She states he ate breakfast this am, she has not checked his sugar since yesterday because he does not like needle sticks. I did instruct her to check his sugar and if it is 400 or greater that he needs to, and check back in. I did state that if it is not 400 and above, I will order glyburide 2.5 mg x 2 tablets until they can get it filled tomorrow. Order placed. Medication brought over by pharmacy. 1400: Patient presented to the ER waiting room I did discuss with him medication prescription. Given 2 tablets of the 2.5 glyburide tablets he did take 1 in my presence in the waiting room. He reports that his sugar prior to arrival was in the 300s. This text was generated using [employer] system, please disregard any oddities of phrase or misspellings.
== END 2022-01-27 21:36 | disposition home or self-care (01) ==
PROVIDERS: Emergency Provider Emergency Medicine; PCP Nurse Practitioner Adult Health
DX: E11.65 Type 2 diabetes mellitus with hyperglycemia (principal)
CPT/HCPCS: 36416; 82962; 96360; 96361; 99284; 99283

== ENCOUNTER 2022-02-15 02:19 | Outpatient (CLI) | payer MEDICAID, SELFPAY ==
[2022-02-15 08:56] LABS: Hemoglobin A1C 12.5 % (<5.7)
[2022-02-15 09:18] LABS: Calculated LDL 64 mg/dL (<100); Cholesterol 131 mg/dL (<200); HDL Cholesterol 47 mg/dL (40-60); Triglyceride 100 mg/dL (<150)
== END 2022-02-15 02:20 | disposition home or self-care (01) ==
LOC: LBO 02:19
PROVIDERS: Absent Provider Nurse Practitioner Adult Health; PCP Nurse Practitioner Adult Health; Referring Provider Nurse Practitioner Adult Health; Visit Provider Nurse Practitioner Adult Health
DX: E11.69 Type 2 diabetes mellitus with other specified complication (principal); E66.8 Other obesity
CPT/HCPCS: 36415; 80061; 83036

== ENCOUNTER 2022-11-16 04:57 | Outpatient (CLI) | payer MEDICAID, SELFPAY ==
[2022-11-16 08:53] LABS: Hemoglobin A1C 6.4 % (<5.7)
[2022-11-16 09:28] LABS: ALT 86 U/L (16-63); AST 44 U/L (15-37); Albumin 3.7 g/dL (3.4-5.0); Alkaline Phosphatase 70 U/L (46-116); Anion Gap 9.6 mmol/L (3-11); BUN 16 mg/dL (7-18); Bilirubin, Total 0.4 mg/dL (0.2-1.0); CO2 27.4 mmol/L (21.0-32.0); CREATININE 0.9 mg/dL (0.70-1.30); Calcium 9.4 mg/dL (8.5-10.1); Calculated LDL 60 mg/dL (<100); Chloride 99 mmol/L (98-107); Cholesterol 116 mg/dL (<200); Estimated GFR 99.62 (mL/min/1.73m2); Glucose 133 mg/dL (74-106); HDL Cholesterol 39 mg/dL (40-60); Potassium 3.9 mmol/L (3.5-5.1); Sodium 136 mmol/L (136-145); TSH (W/Ref FT4) 5.66 uIU/mL (0.36-3.74); Total Protein 8.1 g/dL (6.4-8.2); Triglyceride 85 mg/dL (<150)
[2022-11-16 09:30] LABS: COMMENT (LAB VIEW ONLY) 261.84 mg/dL; Microalb ug/mg Crea 19.8 ug/mg Cr
[2022-11-16 09:47] LABS: FREE T4 0.82 ng/dL (0.76-1.46)
== END 2022-11-16 04:58 | disposition home or self-care (01) ==
LOC: LBO 04:57
PROVIDERS: PCP Nurse Practitioner Adult Health; Referring Provider Nurse Practitioner Adult Health; Visit Provider Nurse Practitioner Adult Health
DX: I10 Essential (primary) hypertension (principal); E03.9 Hypothyroidism, unspecified; E11.69 Type 2 diabetes mellitus with other specified complication; E87.1 Hypo-osmolality and hyponatremia; E66.8 Other obesity
CPT/HCPCS: 36415; 80053; 80061; 82043; 82570; 83036; 84439; 84443

== ENCOUNTER 2023-02-22 03:53 | Outpatient (CLI) | payer MEDICAID, SELFPAY ==
[2023-02-22 11:36] LABS: TSH 3.95 uIU/mL (0.36-3.74)
[2023-02-22 12:20] LABS: Hemoglobin A1C 6.5 % (<5.7)
== END 2023-02-22 03:54 | disposition home or self-care (01) ==
LOC: LBO 03:53
PROVIDERS: PCP Nurse Practitioner Adult Health; Visit Provider Surgery
DX: R79.89 Other specified abnormal findings of blood chemistry (principal); E11.65 Type 2 diabetes mellitus with hyperglycemia
CPT/HCPCS: 36415; 83036; 84443

== ENCOUNTER 2023-12-19 01:33 | Outpatient (CLI) | payer MEDICAID, SELFPAY ==
[2023-12-19 12:42] LABS: Hemoglobin A1C 6.2 % (<5.7)
[2023-12-19 12:50] LABS: ALT 52 U/L (16-63); AST 29 U/L (15-37); Albumin 3.6 g/dL (3.4-5.0); Alkaline Phosphatase 68 U/L (46-116); Anion Gap 8.3 mmol/L (3-11); BUN 12 mg/dL (7-18); CO2 29.7 mmol/L (21.0-32.0); CREATININE 0.9 mg/dL (0.70-1.30); Calcium 9.3 mg/dL (8.5-10.1); Calculated LDL 73 mg/dL (<100); Chloride 105 mmol/L (98-107); Cholesterol 134 mg/dL (<200); Glucose 114 mg/dL (74-106); HDL Cholesterol 47 mg/dL (40-60); Potassium 4.2 mmol/L (3.5-5.1); Sodium 143 mmol/L (136-145); TSH (W/Ref FT4) 4.07 uIU/mL (0.36-3.74); Total Protein 7.8 g/dL (6.4-8.2); Triglyceride 71 mg/dL (<150)
[2023-12-19 13:27] LABS: FREE T4 0.83 ng/dL (0.76-1.46)
== END 2023-12-19 01:34 | disposition home or self-care (01) ==
LOC: LOS 01:33
PROVIDERS: PCP Nurse Practitioner Adult Health; Visit Provider Nurse Practitioner Adult Health
DX: I10 Essential (primary) hypertension (principal); E78.5 Hyperlipidemia, unspecified; E11.69 Type 2 diabetes mellitus with other specified complication; E66.9 Obesity, unspecified; E03.9 Hypothyroidism, unspecified
CPT/HCPCS: 36415; 80053; 80061; 83036; 84439; 84443

== ENCOUNTER 2024-10-10 09:04 | Emergency (ER) | payer MEDICAID, SELFPAY ==
[2024-10-10 09:06] VITALS: BP 143/105; PULSE 87; RESP 16; TEMP 36.6; O2SAT 97
[2024-10-10] MEDS: Tetracaine 0.5% 4 ML BTL (09:12)
[2024-10-10] MEDS: Fluorescein STRIPS 100/BOX 1 MG (09:12)
[2024-10-10 09:14] VITALS: BP 143/105; PULSE 87; RESP 16; TEMP 36.6; O2SAT 97
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
[2024-10-10 10:00] VITALS: BP 120/76; PULSE 79; RESP 17; TEMP 36.4; O2SAT 99
[2024-10-10] MEDS: Erythromycin Ophth Oint 3.5 GM TUBE OD (10:04)
== END 2024-10-10 10:05 | disposition home or self-care (01) ==
PROVIDERS: Emergency Provider Physician Assistant; PCP Nurse Practitioner Adult Health
DX: T15.01XA Foreign body in cornea, right eye, initial encounter (principal)
CPT/HCPCS: 99283 ×2

== ENCOUNTER 2024-12-11 07:00 | Day surgery (SDC) | payer MEDICAID, SELFPAY ==
[2024-12-11 07:05] VITALS: BP 116/70; PULSE 78; RESP 16; TEMP 36.7; O2SAT 99
[2024-12-11] MEDS: Lactated Ringers 1,000 ML 80 ML IV (07:30)
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
[2024-12-11 07:42] VITALS: BMI 47.3
--- NOTE | 2024-12-11 08:04 | W.PM.DSUDISC ---
Date of service: 12/11/24 Discharge Plan Disposition Patient Disposition: Home Condition: Stable Discharge Details Reason For Visit: screening colonoscopy Attending Provider: Trina Nguyen Primary Care Provider: Tiffany Almanzar Home Meds and New Rx's Prescriptions: Continued albuterol sulfate [ProAir HFA] 90 mcg/actuation HFA aerosol inhaler 2 puff inhalation Q4H PRN (Reason: shortness of breath or wheezing) Qty: 8.5 1RF Rx Instructions: Start with 2puffs TID cough, SOB, wheeze; PHARM: Dispense with spacer ibuprofen 600 mg tablet 600 mg PO BID PRN (Reason: pain) Qty: 90 1RF metformin 500 mg tablet extended release 24 hr 500 mg PO .daily with meal Qty: 90 3RF Rx Instructions: Take with food. (DME) lancets Misc See Rx Instructions .MEDSUPPLY Qty: 100 3RF Rx Instructions: E11.9 for daily monitoring for A1C <7%; any brand ok (DME) blood-glucose meter Misc See Rx Instructions .MEDSUPPLY Qty: 1 0RF Rx Instructions: As directed to check blood glucose daily. No insulin. Dispense covered brand. (DME) Blood Glucose Test Strip See Rx Instructions .MEDSUPPLY Qty: 100 3RF Rx Instructions: As directed to check blood glucose daily. No insulin. Dispense covered brand. hydrochlorothiazide 12.5 mg tablet See Rx Instructions .ROUTE .COMPLEX Qty: 90 3RF Dose Instruction: TAKE ONE TABLET BY MOUTH EVERY DAY Rx Instructions: TAKE ONE TABLET BY MOUTH EVERY DAY levothyroxine 50 mcg tablet See Rx Instructions .ROUTE .COMPLEX Qty: 90 3RF Dose Instruction: TAKE ONE TABLET BY MOUTH EVERY DAY Rx Instructions: TAKE ONE TABLET BY MOUTH EVERY DAY Mounjaro 10 mg/0.5 mL pen injector 15 mg SUBCUT ONCE Patient Comments: INJECT CONTENTS OF ONE PEN INJECTOR SUBCUTANEOUSLY ONCE WEEKLY atorvastatin 20 mg tablet See Rx Instructions .ROUTE .COMPLEX Qty: 90 3RF Dose Instruction: TAKE ONE TABLET BY MOUTH EVERY DAY Rx Instructions: TAKE ONE TABLET BY MOUTH EVERY DAY omeprazole 20 mg capsule,delayed release(DR/EC) 20 mg PO DAILY Qty: 90 3RF Rx Instructions: DX: MOE ESOPHAGUS Take in the morning on an empty stomach at least 20-30 minutes before first meal. aspirin 81 MG tablet,chewable 81 mg PO DAILY Discontinued bisacodyl 5 mg tablet,delayed release (DR/EC) 5 mg PO ONCE Qty: 4 0RF Rx Instructions: Per Colonoscopy bowel prep instructions polyethylene glycol 3350 17 gram/dose powder 238 g PO ONCE Qty: 238 0RF Rx Instructions: For Colonoscopy bowel prep, as directed by office Discharge Instructions Additional Instructions: Colonoscopy today is normal, only mild diverticulosis of the colon seen. Zero polyps. Next screening colonoscopy will be due in 10 years. Diverticulosis of the sigmoid colon noted, no diverticulitis (infection) present. Take a daily fiber supplement and eat a high fiber diet to prevent problems and progression of diverticulosis. Review of old records indicates you DID IN FACT have an esophagus condition called Barretts in 2020. This would make you need EGD every 3 years. That explains why your doctor wanted you to have one. Im sorry that I didnt find that record from 2020 scope sooner, otherwise I would have done that EGD on you today. We had talked about it in office and planned only the colonoscopy but I did not have that record at the time. Return to office to discuss surveillance of the Barretts and discuss timing of that exam. Stand Alone Forms: Anesthesia Discharge InstTimmy, Teo Rdz (DSU) Activity:: Activity as Tolerated Diet:: As Tolerated Discharge Orders Discharge Orders: Discharge Order (Routine); Ordered 12/11/24 Ordered By: Trina Nguyen DS: Diagnosis Discharge Diagnosis (1) Screening for colorectal cancer: Status: Acute
--- NOTE | 2024-12-11 08:06 | W.COLOREPORT ---
Date of service: 12/11/24 Time of Service: 08:28 Colonoscopy Report Date of procedure: 12/11/24 Pre-op diagnosis general: Screening for colorectal cancer Post-op diagnosis procedure note: same Procedure: Colonoscopy Surgeon: Trina Nguyen Anesthesia Type: General:No Airway Estimated blood loss (mL): 0 Pathology: none sent Complications: None Indications: screening for colorectal cancer Prep: Miralax/Dulcolax Procedure Description: Informed consent was obtained and the patient was taken to the procedure area. The patient was placed in left lateral decubitus position on the procedure table. Timeout was performed. Anesthesia was induced. A lubricated colonoscope was inserted through the anus and passed to the cecum. The cecum was identified by the ileocecal valve and the appendiceal orifice. The scope was then slowly withdrawn and the colonic and rectal mucosa examined. TI intubated and examined. It appears normal. There are no colon or rectal mass lesions, polyps, AVMs. There is no inflammatory change. Mild sigmoid diverticulosis was seen. The scope was retroflexed in the anorectal junction examined. Uncomplicated internal hemorrhoids present. Assessment and plan: Normal colonoscopy. Next screening colonoscopy will be due in 10 years. Colonoscopy in 2020 had hyperplastic polyps only. No need for sooner scfeening.
[2024-12-11 08:32] VITALS: BP 117/72; PULSE 67; RESP 16; TEMP 36.4; O2SAT 94
--- NOTE | 2024-12-11 08:44 | W.ANESPOSTOP ---
Postoperative Evaluation Date, Time and Location Date Performed: 12/11/24 Time Performed: 08:40 Patient Location: Day [facility] Unit Vital Signs Most Recent Imported Vital Signs: Most Recent Vital Signs Temp Pulse Resp BP Pulse Ox 36.4 C L 67 16 117/72 94 12/11/24 08:32 12/11/24 08:32 12/11/24 08:32 12/11/24 08:32 12/11/24 08:32 Pain Score Most Recent Pain Score: Most Recent Pain Score Pain Level 0 12/11/24 08:32 Assessment Mental Status: Awake (Alert & Oriented to Patient Baseline) Airway and Respiratory Function: Patent airway with normal (patient baseline) respiratory exam Cardiovascular Function: Hemodynamically Stable Hydration Status: Adequately Hydrated Nausea & Vomiting: No Nausea or Vomiting Pain: Pt. Denies Any Pain Peripheral Nerve Block: Patient did not receive a nerve block
[2024-12-11 08:58] VITALS: BP 107/67; PULSE 58; RESP 16; TEMP 36.3; O2SAT 95
== END 2024-12-11 09:06 | disposition home or self-care (01) ==
PROVIDERS: PCP Nurse Practitioner Adult Health; Visit Provider Surgery
PROC: 0DJD8ZZ Inspection of Lower Intestinal Tract, Via Natural or Artificial Opening Endoscopic (ICD-10-PCS; CPT 45378; principal; 2024-12-11 08:15)
DX: Z12.11 Encounter for screening for malignant neoplasm of colon (principal); Z12.12 Encounter for screening for malignant neoplasm of rectum; I10 Essential (primary) hypertension; E11.69 Type 2 diabetes mellitus with other specified complication; E11.311 Type 2 diabetes mellitus with unspecified diabetic retinopathy with macular edema
CPT/HCPCS: 45378; J2704